=== PATIENT | female | born 1975 | race Caucasian/White ===

== ENCOUNTER 2020-12-25 15:30 | Emergency (ER) | payer SELFPAY ==
[~2020-12-25] VITALS: Ht 165.1 cm; Wt 59.9 kg
[2020-12-25] MEDS ORDERED: ONDANSETRON HCL/PF 4 MG/2 ML VIAL ONE (15:52)
[2020-12-25] MEDS ORDERED: IV NS 0.9% 1,000 ML BAG IV ONE (16:00)
[2020-12-25] MEDS ORDERED: ONDANSETRON HCL/PF 4 MG/2 ML VIAL IVP ONE (16:00)
--- NOTE | 2020-12-25 16:11 | NUR ---
Patient bib[place] from a restaurant passed out, narcan 2 mg given on scene. On room air, breathing evenly and unlabored. Connected to the monitor and pulse ox. kept comfortable will continue to monitor accordingly.
[2020-12-25 19:06] VITALS: BP 140/77
--- NOTE | 2020-12-25 19:07 | NUR ---
Patient given written and verbal discharge instructions. Patient verbalizes understanding of instructions. Patient is ambulatory with steady gait. Refuses offer of custodial placement. Patient given list of available shelters in surrounding area.
== END 2020-12-25 19:07 | disposition home or self-care (01) ==
LOC: ER 15:33 → EDBD 15:33 → ER 19:07
DX: T40.691A Poisoning by other narcotics, accidental (unintentional), initial encounter (principal); R41.82 Altered mental status, unspecified; R94.31 Abnormal electrocardiogram [ECG] [EKG]; Z59.0 Homelessness; Y92.89 Other specified places as the place of occurrence of the external cause
CPT/HCPCS: 70450; 93005; 96361; 96374; 99284; J2405; J7030